=== PATIENT | female | born 1975 | race African-American/Black ===

== ENCOUNTER 2021-01-20 10:00 | Inpatient (IN) | payer OTHER ==
[2021-01-22 12:55] VITALS: BMI 34.2
[2021-01-27] MEDS ORDERED: MIDAZOLAM HCL 2 MG/2 ML SINGLE DOSE VIAL ONE ×2 (07:33)
[2021-01-27] MEDS ORDERED: BUPIVACAINE LIPOSOME/PF (EXPAREL) 266 MG/20 ML VIAL ONE (07:34)
[2021-01-27] MEDS ORDERED: BUPIVACAINE HCL/PF 0.5% (5MG/ML) 10 ML VIAL ONE (07:34)
[2021-01-27] MEDS ORDERED: SUCCINYLCHOLINE CHLORIDE 200 MG/10 ML SYRINGE ONE (08:32)
[2021-01-27] MEDS ORDERED: PROPOFOL 20 ML ONE (08:32)
[2021-01-27] MEDS ORDERED: ceFAZolin 2 GRAM PREMIX BAG IVPB ONE (08:40)
[2021-01-27] MEDS ORDERED: ceFAZolin SODIUM 1 GM VIAL ONE (08:41)
[2021-01-27] MEDS ORDERED: DEXAMETHASONE SOD PHOSPHATE 4 MG/1 ML VIAL ONE (08:45)
[2021-01-27] MEDS ORDERED: ROCURONIUM BROMIDE 100 MG/10 ML VIAL ONE (08:47)
[2021-01-27] MEDS ORDERED: HYDROmorphone HCl 2 MG/ML VIAL ONE (08:56)
[2021-01-27] MEDS ORDERED: ONDANSETRON 4 MG/2 ML VIAL ONE ×2 (09:53→12:01)
[2021-01-27] MEDS ORDERED: KETOROLAC TROMETHAMINE 30 MG/1 ML VIAL ONE (10:10)
[2021-01-27] MEDS ORDERED: BACITRACIN 15 GM TUBE TOPICAL OINTMENT ONE (10:16)
[2021-01-27] MEDS ORDERED: IBUPROFEN 800 MG/8 ML IJ IVPB PRN (10:43)
[2021-01-27] MEDS ORDERED: IBUPROFEN 600 MG TABLET (FP) PO PRN (10:43)
[2021-01-27] MEDS ORDERED: ONDANSETRON 4 MG/2 ML VIAL IVPUSH PRN (10:43)
[2021-01-27] MEDS ORDERED: ACETAMINOPHEN 1000 MG/100 ML VIAL (NON FORMULARY) IVPB ONE (10:54)
[2021-01-27] MEDS ORDERED: LACTATED RINGERS SOLUTION 1,000 ML IV SCH (11:00)
[2021-01-27] MEDS ORDERED: ACETAMINOPHEN INJECTION 100 ML IVPB ONE (11:23)
[2021-01-27] MEDS: DEXTROSE 5%-0.45% SALINE 1,000 ML IV SCH (12:25)
[2021-01-27] MEDS: oxyCODONE HCL 5 MG TABLET PO PRN (12:45)
[2021-01-27] MEDS: ACETAMINOPHEN 325 MG TABLET (FP) PO SCH ×2 (12:52→17:10)
[2021-01-27] MEDS ORDERED: KETOROLAC TROMETHAMINE 30 MG/1 ML VIAL IVPUSH PRN (16:21)
[2021-01-27] MEDS: CEFAZOLIN 2 GM/D5W 2 GM/50 ML ML IVPB SCH (17:11)
[2021-01-27] MEDS ORDERED: ACETAMINOPHEN 325 MG TABLET (FP) PO SCH (18:00)
[2021-01-27] MEDS: traMADol HCL 50 MG TABLET PO PRN (22:23)
[2021-01-28] MEDS: oxyCODONE HCL 5 MG TABLET PO PRN ×5 (00:07→23:45)
[2021-01-28] MEDS: ACETAMINOPHEN 325 MG TABLET (FP) PO SCH ×5 (00:13→23:39)
[2021-01-28] MEDS: CEFAZOLIN 2 GM/D5W 2 GM/50 ML ML IVPB SCH (02:20)
[2021-01-28] MEDS: DEXTROSE 5%-0.45% SALINE 1,000 ML IV SCH (14:06)
[2021-01-28] MEDS: traMADol HCL 50 MG TABLET PO PRN ×2 (14:08→21:24)
[2021-01-29] MEDS: oxyCODONE HCL 5 MG TABLET PO PRN ×2 (04:41→11:31)
[2021-01-29] MEDS: ACETAMINOPHEN 325 MG TABLET (FP) PO SCH ×2 (04:43→11:30)
[2021-01-29] MEDS: traMADol HCL 50 MG TABLET PO PRN (07:05)
[2021-01-29 07:39] VITALS: TEMP 99
[2021-01-29 09:32] LABS: BASO % 0.8 % (0-2.0); HEMATOCRIT 36.8 % (32.4-45.2); HEMOGLOBIN 12.8 GM/dL (10.7-15.3); MCH 28.4 pg (25.7-33.7); MCHC 34.7 g/dl (32.0-36.0); MEAN CELL VOLUME 81.7 fl (80-96); MEAN PLT VOLUME 7.3 fl (7.5-11.1); MONO % 8.1 % (3.8-10.2); NEUT % 67.1 % (42.8-82.8); PLATELET COUNT 269 10^3/uL (134-434); RBC 4.51 M/mm3 (3.60-5.2); RDW 13.1 % (11.6-15.6); WHITE BLOOD COUNT 8.2 K/mm3 (4.0-10.0)
[2021-01-29] MEDS: DEXTROSE 5%-0.45% SALINE 1,000 ML IV SCH (11:31)
[2021-01-29 11:36] VITALS: BP 147/86; PULSE 77
[2021-01-29] MEDS ORDERED: BISACODYL 10 MG SUPP.RECT PR ONE (11:45)
== END 2021-01-29 17:08 | disposition home or self-care (01) | DRG 743 ==
LOC: J2C 01-27 04:27 → J6S 01-27 12:39
PROVIDERS: ADMIT Obstetrics & Gynecology; ATTEND Obstetrics & Gynecology
PROC: 0UB10ZZ Excision of Left Ovary, Open Approach (ICD-10-PCS; 2021-01-27)
PROC: 0UT90ZL Resection of Uterus, Supracervical, Open Approach (ICD-10-PCS; principal; 2021-01-27 08:00)
DX: D25.1 Intramural leiomyoma of uterus (principal); R10.2 Pelvic and perineal pain; N94.10 Unspecified dyspareunia; N80.0 Endometriosis of uterus; N83.202 Unspecified ovarian cyst, left side
CPT/HCPCS: 36415; 81025; 85025; 86850; 86900; 86901; 94010; 94760; J0131